=== PATIENT | female | born 1995 | race Two or more races ===

== ENCOUNTER → 2025-06-13 | Emergency (ER) | payer OTHER ==
[~2025-06-13] VITALS: Ht 162.6 cm; Wt 117.9 kg
[2025-06-13 21:01] VITALS: BP 119/80; O2SAT 100
[2025-06-14 00:37] LABS: URINE APPEARANCE Clear; URINE BILIRRUBIN Negative (NEGATIVE); URINE BLOOD Negative; URINE COLOR Yellow; URINE GLUCOSE Negative (NEGATIVE); URINE KETONE 15 (NEGATIVE); URINE LEUKOCYTE Small; URINE NITRATE Negative; URINE PROTEIN Negative (NEGATIVE); URINE UROBILINOGEN 0.2 E.U./dl
[2025-06-14 00:37] LABS: BASO % 0.4 % (0.1-1.2); EOS # 0.09 (0.04-0.54); EOS % 0.8 % (0.7-7.0); LYMPH # 3.07 (1.18-3.74); LYMPH % 26.9 % (19.3-53.1); MEAN PLATELET VOLUME 10.30 fl (9.4-12.4); MONO # 0.65 (0.24-0.82); MONO % 5.7 % (4.7-12.5); NEUT # 7.53 (1.56-6.13); NEUT % 66.0 % (34.0-71.1); RED CELL DISTRIBUTION WIDTH 13.2 % (11.6-14.4)
[2025-06-14 00:41] LABS: URINE BACTERIA 2443.1 uL (0.0-1933); URINE EPITHELIAL CELLS 45.6 uL (0.0-38.8); URINE RBC 6.1 uL (0.0-20.8); URINE WBC 147.2 uL (0.0-23.2)
[2025-06-14 00:46] LABS: URINE CAST 0.58 uL (0.0-1.40)
[2025-06-14 00:55] LABS: INR 1.0
[2025-06-14 01:00] LABS: ALT/SGPT 30.0 U/L (12-78); AST/SGOT 14.0 U/L (15-37); BILIRUBIN TOTAL 0.31 mg/dL (0.3-1.2); BUN CREA RATIO 17.0 (7.0-25.0); CREATININE SERUM 0.54 mg/dL (0.55-1.02); GFR 135.42; GLOBULINA 4.0 G/DL (2.4-3.5); GLUCOSE FASTING 94.0 mg/dL (65-100); OSMOLALITY SERUM 276.0 MOSM/KG (275-295)
== END | disposition left against medical advice (07) ==
LOC: ER 20:25
PROVIDERS: General Practice
DX: Z33.1 Pregnant state, incidental (principal); Z3A.09 9 weeks gestation of pregnancy; N93.9 Abnormal uterine and vaginal bleeding, unspecified; R51.9 Headache, unspecified; R10.20 Pelvic and perineal pain unspecified side